=== PATIENT | female | born 1940 | race Caucasian/White ===

== ENCOUNTER → 2017-01-01 | Outpatient (CLI) | payer MEDICARE, OTHER ==
[~2017-01-01] MED LIST: B COMPLEX1 EACH; CELECOXIB200 MG PO; COCONUT OIL1000 MG PO; FERRO-TIME325 MG PO; FISH OIL 1,0001 EACH PO; GINKGO BILOBA500 MG; HCTZ PO; LEVO-T125 MCG; MAGNESIUM; MIRAPEX1 MG; MULTI-VITAMIN1 EAC1 PO; POTASSIUM CHLO10 ME1; PROZAC PO; VITAMIN D250000 UNIT PO; [UNRECOGNIZED DRUG - OTHER]
--- NOTE | ~2017-01-01 | EKG ---
PATIENT: LUZ MARINA PHILLIPS UNIT #: [id number] Ventricular Rate: 64 BPM Atrial Rate: 64 BPM P-R Interval: 156 ms QRS Duration: 90 ms Q-T Interval: 420 ms QTC Calculation(Bezet): 433 ms P [place]: 42 degrees Calculated R [place]: -28 degrees Calculated T [place]: 18 degrees Diagnosis Line: Normal sinus rhythm ST elevation, consider early Diagnosis Line: repolarization, pericarditis, or injury Borderline Diagnosis Line: ECG Diagnosis Line: No previous ECGs available Diagnosis Line: Confirmed by YAZ CAMPBELL MD ([id number]) on 01/02/2017 Diagnosis Line: 5:59:38 PM INTERPRETING MD: ADRIAN LUNDY
--- NOTE | ~2017-01-01 | CR63 ---
[facility] A Service of [facility] RADIOLOGY TEXT RESULTS PATIENT: LUZ MARINA PHILLIPS LOCATION: [facility] : 42 UNIT #: [id number] AGE: [address]: Dao Granados MD SEX: F ORDER DR: [id number] [facility] [address] [place], [place] [address] [id number] MR#: [id number] Acc #: [id number] NAME: LUZ MARINA PHILLIPS : 1940 SEX: F STUDY DATE/TIME: 01/01/2017 UNIT: [facility] ROOM: STUDY DESCRIPTION: CR Chest 2 View Attending Physician: Dao Granados M.D. Referring Physician: Dao Granados M.D. Ordering Physician: Dao Granados M.D. Primary Care Physician: Laurent Hightower M.D. MEDICAL IMAGING REPORT This report is preliminary unless electronic signature is present EXAM Chest 2 views 01/01/2017 1122 hours. HISTORY 76-year-old woman with mild chronic shortness of air with activity, preop for revision of knee replacement. COMPARISON None. FINDINGS Upright PA and lateral views of the chest demonstrate a mildly enlarged cardiac silhouette with a tortuous atherosclerotic aorta. The pulmonary vascularity is normal. Lung volumes are low. There is likely a small hiatal hernia. Lateral view demonstrates blunting of the posterior sulci bilaterally, which could indicate small bilateral pleural effusions versus pleural thickening. IMPRESSION There is mild cardiomegaly with blunting of both posterior sulci suggesting small bilateral pleural effusions or chronic pleural thickening. There is no evidence of pneumonia or edema. A small hiatal hernia may be present. Dictated by... Syl Marr M.D. THIS IS AN ELECTRONICALLY VERIFIED REPORT Syl Marr M.D. at 01/02/2017 9:30 AM SELENE/ioana [facility] A Service of [facility] RADIOLOGY TEXT RESULTS PATIENT: LUZ MARINA PHILLIPS LOCATION: [facility] : 42 UNIT #: [id number] AGE: [address]: Dao Granados MD SEX: F ORDER DR: TD: 01/01/2017 14:57 JOB #: [id number] MEDICAL IMAGING REPORT Page 1 of 1 COPY
[2017-01-01 08:58] LABS: URINE APPEARANCE CLEAR; URINE BILIRUBIN NEG (NEG); URINE BLOOD NEG (NEG); URINE COLOR YELLOW; URINE GLUCOSE NEG (NEG); URINE KETONE NEG (NEG); URINE LEUKOCYTE ESTERASE NEG (NEG); URINE NITRATE NEG (NEG); URINE PROTEIN NEG (NEG); URINE SPECIFIC GRAVITY 1.018 (1.003-1.035); URINE UROBILINOGEN 0.2 MG/DL (NEG)
[2017-01-01 09:02] LABS: HEMATOCRIT 45.6 % (35.0-45.0); HEMOGLOBIN 14.8 gm/dL (12.0-16.0); MEAN CELL VOLUME 86.2 FL (83-96); MEAN CORPUSCULAR HGB CONC 32.5 g/dL (30-36); MEAN PLATELET VOLUME 8.8 FL (6.5-11.5); RED BLOOD COUNT 5.28 X10e (3.90-5.30); RED CELL DISTRIBUTION WIDTH 14.3 % (11.0-15.5); WHITE BLOOD COUNT 8.3 X10e3 (4.0-10.5)
[2017-01-01 09:03] LABS: CULTURE INDICATED? NO; URINE SOURCE CLEAN CATCH
[2017-01-01 09:16] LABS: PROTHROMBIN TIME (PATIENT) 10.5 SECONDS (9.6-11.5)
[2017-01-01 09:20] LABS: BILIRUBIN,TOTAL 0.7 mg/dL (0.2-2.0); CALCIUM SERUM 9.2 mg/dL (8.4-10.2); CREATININE SERUM 0.5 mg/dL (0.6-1.4); GLOM FILT RATE Estimated 95.4 mL/min (>60); POTASSIUM 3.9 mmol/L (3.5-5.1); PROTEIN TOTAL SERUM 6.8 g/dL (6.0-8.3)
[2017-01-01 11:17] LABS: THYROID STIMULATING HORMONE 0.04 uIU/ml (0.34-5.60)
[2017-01-01 11:24] LABS: FREE THYROXIN (T4) 1.29 ng/dL (0.58-1.64)
== END | disposition home or self-care (01) ==
LOC: CAMB 12-30 10:00
PROVIDERS: Orthopaedic Surgery
DX: Z01.818 Encounter for other preprocedural examination (principal); T84.023A Instability of internal left knee prosthesis, initial encounter; E03.9 Hypothyroidism, unspecified; I51.7 Cardiomegaly; Z79.01 Long term (current) use of anticoagulants
CPT/HCPCS: 36415; 71020; 80053; 81003; 84439; 84443; 85027; 85610; 85652; 86140; 86850; 86900; 86901; 87070; 93005

== ENCOUNTER → 2017-02-10 | Day surgery (SDC) | payer MEDICARE, OTHER ==
--- NOTE | ~2017-02-10 | CO ---
Unit #: [id number] #: [id number] Patient: LUZ MARINA PHILLIPS [id number] [address] [place], [place] [address] [id number] MR#: [id number] NAME: LUZ MARINA PHILLIPS ROOM: Age: 76 Sex: F Admission Date: 01/13/2017 : 1940 Attending Physician: Dao Granados M.D. Consultation Date: 01/01/2017 CONSULTATION REPORT REASON FOR CONSULTATION Preoperative medical evaluation prior to revision left total knee arthroplasty secondary to failed components of the left knee and left total knee instability scheduled by Dr. Granados for 01/23/2017. HISTORY OF PRESENT ILLNESS The patient is a 76-year-old female, who presents to preprocedural screening for the reasons indicated above. She reports left knee stiffness and sensation that her left leg is heavy and hard to move especially worsening with weather changes. She denies fever or chills. She denies arm, neck, jaw, back pain or pressure, dyspnea on exertion, shortness of air, orthopnea, or paroxysmal nocturnal dyspnea. She has not undergone a formal sleep apnea testing and states that she is not sure that she actually "snores." She denies lightheadedness, dizziness, syncope, or presyncope. Denies palpitations. She denies a history of myocardial infarction, congestive heart failure, CVA, TIA, diabetes mellitus, and chronic kidney disease. She is stable at the time of this interview. She has been evaluated by Dr. Granados and scheduled for the above-referenced procedure. PAST MEDICAL HISTORY 1. Osteoarthritis. 2. Obesity, BMI of 31. 3. Hypertension. 4. Risk factors for obstructive sleep apnea per Stop-Bang protocol without BIJU testing. 5. Urinary stress incontinence. 6. Depression and anxiety. 7. Hypothyroidism. 8. Remote history of anemia. 9. Restless legs syndrome. 10. Tingling in hands and feet. PAST SURGICAL HISTORY 1. Bilateral total knee arthroplasty. 2. Left total knee revision. 3. Tonsillectomy. 4. Cholecystectomy. 5. Gastric bypass surgery. 6. Bilateral foot surgeries x4 each. 7. Hernia repair x2. 8. Bilateral cataract extraction. 9. Hand and arm fracture repair. Please note, this patient denies a personal and family history of Unit #: [id number] #: [id number] Patient: LUZ MARINA PHILLIPS complications to anesthesia. ALLERGIES No known drug allergies. Denies latex allergy. CURRENT MEDICATIONS Mirapex 1 mg p.o. at bedtime, levothyroxine sodium 250 mcg p.o. daily, vitamin D2 41769 units p.o. on Saturdays, hydrochlorothiazide 50 mg p.o. b.i.d., potassium chloride 30 mEq p.o. b.i.d., Celebrex 200 mg p.o. b.i.d., fluoxetine 20 mg p.o. daily, echinacea 2280 mg daily, B complex 3000 mcg p.o. daily, fish oil 1000 mg softgel one cap p.o. daily, coconut oil 1000 mg p.o. daily, ginkgo biloba 1000 mg p.o. daily, multivitamin one p.o. daily at bedtime, Santo-Time 325 mg tab one p.o. b.i.d. SOCIAL HISTORY Denies tobacco use or illicit drug use. Consumes EtOH occasionally. FAMILY HISTORY Per review of Dr. Granados's office note, father had history of multiple myeloma. No known immediate family history of coronary artery disease, diabetes, CVA, or congestive heart failure. REVIEW OF SYSTEMS The patient reports left knee stiffness, sensation of left lower extremity heavy and hard to move especially with weather changes. She also reports intermittent sensation of cold feet and she wears socks at night. She reports dependent bilateral lower extremity edema, which improves with elevation of both lower extremities. A 10-point review of systems is conducted and otherwise negative except as indicated under history of present illness above. PHYSICAL EXAMINATION GENERAL: A 76-year-old obese female, awake, alert, in no acute distress. VITAL SIGNS: Temperature 97.8, heart rate 64, respiratory rate 16, blood pressure 108/73. HEENT: Atraumatic and normocephalic. Sclerae anicteric. No discharge from eyes, ears, or nares. LYMPH: No preauricular, postauricular, tonsillar, submental, anterior or posterior cervical adenopathy. ENDOCRINE: No thyromegaly, thyroid nodules, or tenderness. RESPIRATORY: Clear to auscultation in all campbell bilaterally without wheezes, rhonchi, or rales. CARDIOVASCULAR: S1, S2. Regular rate and rhythm without murmur or rub. GI: Bowel sounds are positive x4. Soft, nontender, nondistended. EXTREMITIES: 3+ bilateral lower extremity edema. NEUROLOGIC: Alert and oriented x3. Speech clear. Cranial nerves II through XII are grossly intact. Follows commands. DIAGNOSTIC STUDIES LABORATORY RESULTS: WBC 8.3, hemoglobin 14.8, hematocrit 45.6, platelet count 189,000. Sedimentation rate 9. TSH 0.04. Free T4 1.29. Sodium 139, potassium 3.9, chloride 102, CO2 28, glucose 87, BUN 23, creatinine 0.5, calcium 9.2. AST 31, ALT 34, alkaline phosphatase 59, bilirubin total 0.7, total protein 6.8, albumin 4.0. PT 10.5, INR 1.0. Urinalysis, negative with neither microscopic nor culture indicated. MRSA nasal swab report pending at this time. Unit #: [id number] #: [id number] Patient: LUZ MARINA PHILLIPS IMAGING STUDIES: Two-view chest x-ray report pending at this time. CARDIOVASCULAR STUDIES: Cardiology; 12-lead EKG, normal sinus rhythm, possible left atrial enlargement, borderline ECG. Confirmed report pending at this time. IMPRESSION The patient is a 76-year-old obese female, who presents to preprocedural screening for; 1. Preoperative medical evaluation prior to revision left total knee arthroplasty. The patient's Tovar revised cardiac risk index is equal to 0.4%. This represents the patient's perioperative risk of fatal or nonfatal myocardial infarction, cardiopulmonary arrest, arrhythmia, and/or pulmonary edema. This has been discussed in detail with the patient. She wishes to proceed with surgery as scheduled at this time. 2. Hypertension. The patient's blood pressure is controlled today. We will monitor blood pressure perioperatively and adjust home antihypertensive medications if indicated. 3. Risk factors for obstructive sleep apnea per Stop-Bang protocol. The patient states that she does not snore so to speak. Given the patient's risk factors, I have recommended that she will be placed on BIJU protocol postoperatively. 4. Urinary stress incontinence. 5. Depression and anxiety, stable. 6. Hypothyroidism. TSH and free T4 are within normal range today. Continue current dose of home medication. Follow up with primary care physician. 7. Remote history of anemia, status post total joint replacement. The patient's H and H are stable today. 8. Restless legs syndrome, stable. 9. Baseline tingling of bilateral hands and feet. 10. Health maintenance. The patient states that she was treated in 05/2016 for an abscessed tooth and all has resolved and there are no issues at this time. Thank you for allowing us to participate in care of this patient. We will gladly follow her for postop medical management pending order of Dr. Granados. Dictated by... Calli Ling A.P.R.N. for Marium Khan/padmini TD: 01/02/2017 05:17 JOB #: [id number] CONSULTATION REPORT Page 1 of 1 X Calli Ling POULTRY VACCINATOR X CONSULTATION REPORT
[2017-02-10 09:56] LABS: BASOPHIL% 0.5 % (0-2.5); EOSINOPHIL# 0.2 X10e3 (0-0.7); EOSINOPHIL% 2.4 % (0.0-7.0); HEMOGLOBIN 14.4 gm/dL (12.0-16.0); LYMPHOCYTE# 2.4 X10e3 (1.0-3.5); LYMPHOCYTE% 29.3 % (17.0-45.0); MEAN CELL VOLUME 86.5 FL (83-96); MEAN CORPUSCULAR HEMOGLOBIN 27.7 PG (28-34); MEAN PLATELET VOLUME 9.4 FL (6.5-11.5); MONOCYTE# 0.9 X10e3 (0-1.0); MONOCYTE% 10.9 % (3.0-12.0); NEUTROPHIL# 4.7 X10e3 (1.5-7.1); NEUTROPHIL% 56.9 % (40-75); PLATELET COUNT 171 X10e3 (140-420); RED BLOOD COUNT 5.21 X10e (3.90-5.30); RED CELL DISTRIBUTION WIDTH 13.9 % (11.0-15.5); WHITE BLOOD COUNT 8.3 X10e3 (4.0-10.5)
[2017-02-10 10:05] LABS: DIFF IND NO
[2017-02-10 10:08] LABS: PROTHROMBIN TIME (PATIENT) 11.3 SECONDS (10.0-11.7)
[2017-02-10 10:11] LABS: URINE SOURCE CLEAN CATCH
[2017-02-10 10:14] LABS: URINE APPEARANCE CLOUDY; URINE BILIRUBIN NEG (NEG); URINE BLOOD TRACE (NEG); URINE COLOR YELLOW; URINE GLUCOSE NEG (NEG); URINE KETONE NEG (NEG); URINE LEUKOCYTE ESTERASE NEG (NEG); URINE NITRATE NEG (NEG); URINE PROTEIN NEG (NEG); URINE SPECIFIC GRAVITY 1.012 (1.003-1.035); URINE UROBILINOGEN 0.2 MG/DL (NEG)
[2017-02-10 10:17] LABS: CULTURE INDICATED? NO; URBCS1 AUWI 0-2 /[HPF] (0-2); URINE BACTERIA AUWI NEG (NEGATIVE); URINE SQUAMOUS EPITHELIAL CELL NONE SEEN /[HPF]; UWBCS1 AUWI 0-2 (0-5)
[2017-02-10 10:26] LABS: ALBUMIN SERUM 4.2 g/dL (3.5-5.0); BILIRUBIN,TOTAL 1.1 mg/dL (0.2-2.0); BUN/CREATININE RATIO 31.66; CALCIUM SERUM 9.2 mg/dL (8.4-10.2); CREATININE SERUM 0.6 mg/dL (0.6-1.4); GLOM FILT RATE Estimated 89.8 mL/min (>60); POTASSIUM 3.2 mmol/L (3.5-5.1); PROTEIN TOTAL SERUM 7.1 g/dL (6.0-8.3)
== END | disposition home or self-care (01) ==
LOC: CSUR 01-13 10:00 → CPACUOF 09:09 → CSUR 09:09
PROVIDERS: Orthopaedic Surgery
DX: M25.362 Other instability, left knee (principal); M19.90 Unspecified osteoarthritis, unspecified site; I10 Essential (primary) hypertension; E03.9 Hypothyroidism, unspecified; D64.9 Anemia, unspecified; F32.9 Major depressive disorder, single episode, unspecified; F41.9 Anxiety disorder, unspecified; Z86.2 Personal history of diseases of the blood and blood-forming organs and certain disorders involving the immune mechanism; Z90.49 Acquired absence of other specified parts of digestive tract; Z96.653 Presence of artificial knee joint, bilateral; Z98.84 Bariatric surgery status; Z98.41 Cataract extraction status, right eye; Z98.42 Cataract extraction status, left eye; Z79.01 Long term (current) use of anticoagulants; Z98.890 Other specified postprocedural states; Z53.8 Procedure and treatment not carried out for other reasons
CPT/HCPCS: 80053; 81003; 85025; 85610; 86850; 86900; 86901; J0171; J0690; J0735; J1885; J2795

== ENCOUNTER → 2017-02-24 | Outpatient (CLI) | payer MEDICARE, OTHER ==
[2017-02-24 12:22] LABS: URINE APPEARANCE CLEAR; URINE BILIRUBIN NEG (NEG); URINE BLOOD NEG (NEG); URINE COLOR YELLOW; URINE GLUCOSE NEG (NEG); URINE KETONE NEG (NEG); URINE LEUKOCYTE ESTERASE NEG (NEG); URINE NITRATE NEG (NEG); URINE PROTEIN NEG (NEG); URINE SPECIFIC GRAVITY 1.011 (1.003-1.035); URINE UROBILINOGEN 0.2 MG/DL (NEG)
[2017-02-24 12:27] LABS: HEMATOCRIT 42.5 % (35.0-45.0); HEMOGLOBIN 13.7 gm/dL (12.0-16.0); MEAN CELL VOLUME 87.2 FL (83-96); MEAN CORPUSCULAR HEMOGLOBIN 28.1 PG (28-34); MEAN CORPUSCULAR HGB CONC 32.2 g/dL (30-36); MEAN PLATELET VOLUME 9.9 FL (6.5-11.5); RED BLOOD COUNT 4.87 X10e (3.90-5.30); RED CELL DISTRIBUTION WIDTH 13.2 % (11.0-15.5); WHITE BLOOD COUNT 7.9 X10e3 (4.0-10.5)
[2017-02-24 12:29] LABS: CULTURE INDICATED? NO
[2017-02-24 12:33] LABS: PROTHROMBIN TIME (PATIENT) 11.1 SECONDS (10.0-11.7)
[2017-02-24 12:48] LABS: ALBUMIN SERUM 3.6 g/dL (3.5-5.0); BILIRUBIN,TOTAL 0.5 mg/dL (0.2-2.0); BUN/CREATININE RATIO 43.33; CALCIUM SERUM 9.2 mg/dL (8.4-10.2); CREATININE SERUM 0.6 mg/dL (0.6-1.4); GLOM FILT RATE Estimated 89.8 mL/min (>60); POTASSIUM 3.5 mmol/L (3.5-5.1); PROTEIN TOTAL SERUM 6.1 g/dL (6.0-8.3)
== END | disposition home or self-care (01) ==
LOC: CAMB 11:17
PROVIDERS: Orthopaedic Surgery
DX: Z01.812 Encounter for preprocedural laboratory examination (principal); M25.362 Other instability, left knee
CPT/HCPCS: 36415; 80053; 81003; 85027; 85610; 85652; 86140; 86850; 86900; 86901; 87070

== ENCOUNTER 2017-03-03 07:07 | Inpatient (IN) | payer MEDICARE, OTHER ==
[~2017-03-03] VITALS: Ht 162.6 cm; Wt 98.0 kg
--- NOTE | ~2017-03-03 | CR169 ---
[facility] A Service of [facility] RADIOLOGY TEXT RESULTS PATIENT: LUZ MARINA PHILLIPS LOCATION: [facility] 449-01 : 42 UNIT #: [id number] AGE: [address]: Dao Granados MD SEX: F ORDER DR: [id number] [facility] [address] [facility] [address] [facility] [place], [place] [address] [id number] I MR#: [id number] Acc #: [id number] NAME: LUZ MARINA PHILLIPS. : 1940 SEX: F STUDY DATE/TIME: 03/03/2017 14:01 UNIT: [facility] ROOM: [facility] STUDY DESCRIPTION: CR Knee 2 Views Lt Attending Physician: Dao Granados M.D. Ordering Physician: Dao Granados M.D. Primary Care Physician: Laurent Hightower M.D. MEDICAL IMAGING REPORT This report is preliminary unless electronic signature is present EXAM Left knee series 03/03/2017 HISTORY Status post total knee. Pain left today. TECHNIQUE AP and lateral views of the left knee are presented. COMPARISON STUDIES There are no prior studies available for comparison. Comparison with prior study strongly recommended. FINDINGS Patient is status post revision of left total knee replacement. The orthopedic hardware is normally located and aligned. On the lateral view, there is a screw-like metallic density measuring up to 1.9 cm in length, pointed posteriorly. It is not seen on the frontal views. Its precise location is unclear. It could be within the joint capsule. Alternatively, it could be within the extra-capsular soft tissues. Its relationship to popliteal fossa vascular structures is unclear on basis of this examination. Correlate clinically with any prior imaging. Efforts are underway contact Dr. Granados for discussion of this finding. Surgical drain in the operative bed. Small amount of air and fluid in the operative bed. Surgical skin andrew anteriorly. Dictated by... Kristopher Ellison M.D. THIS IS AN ELECTRONICALLY VERIFIED REPORT Kristopher Ellison M.D. at 03/04/2017 6:52 PM [facility] A Service of [facility] RADIOLOGY TEXT RESULTS PATIENT: LUZ MARINA PHILLIPS LOCATION: [facility] 449-01 : 42 UNIT #: [id number] AGE: [address]: Dao Granados MD SEX: F ORDER DR: Yessica TD: 03/04/2017 02:14 JOB #: [id number] MEDICAL IMAGING REPORT Page 1 of 1 COPY
--- NOTE | ~2017-03-03 | OR ---
Unit #: [id number] #: [id number] Patient: LUZ MARINA PHILLIPS [id number] [address] [place], [place] [address] [id number] I MR#: [id number] NAME: LUZ MARINA PHILLIPS ROOM: [facility] Date of Procedure: 03/03/2017 Admission Date: 03/03/2017 Surgeon: Dao Granados M.D. : 1940 Attending Physician: Dao Granados M.D. Primary Care Physician: Laurent Hightower M.D. OPERATIVE REPORT PREOPERATIVE DIAGNOSIS Global instability, left total knee. POSTOPERATIVE DIAGNOSIS Global instability, left total knee. PROCEDURE PERFORMED Revision of left total knee to a hinged prosthesis. ASSISTANTS Arvin and Ruslan. ANESTHESIA Adductor canal block plus general. ESTIMATED BLOOD LOSS 200 mL. Lateral release was performed. DESCRIPTION OF PROCEDURE The patient was brought to the holding room, given 2 g of Kefzol. This will be continued postop, but discontinued within 23 hours from the start time of surgery. She was then given an adductor canal block, brought back to the operating room, given a general anesthetic. Tourniquet placed around the left thigh. Left leg was prepped and draped in a sterile fashion. Tourniquet was inflated to 300. The previous skin incision was used. Subcutaneous dissected away and a medial arthrotomy performed. Clear fluid was encountered. This was cultured. We then flexed the knee. The patella was subluxed laterally, removed the polyethylene from the previous tray was a 22 mm thick poly. After this was done, the patient had a cemented long stem femoral component. We loosened the femur using a 1/2-inch osteotome, tried to disimpact it, but it was still well fixed proximally, so we split the femur longitudinally through the anterior cortex and then eventually were able to get it to be disimpacted and then removed the rest of the cement from the canal. The tibia was then removed and the cement removed from the tibia. The tibia was then reamed up to a 14, reamed for the conical reamer and then broached up to a size 53 for the MBT sleeve. The tibia was sized at a 2. We then reamed the femur up to a 15 and used the broaches up to the largest one for the [place] femoral sleeve, which was a size 46. We had put cerclage wires around the distal femur, where the osteotomy had been performed. We reduced the knee Unit #: [id number] #: [id number] Patient: LUZ MARINA PHILLIPS found that we needed a 21 mm insert for the hinge and this seemed to give appropriate tension in extension. We then removed all the trials, inspected the patella. It was not loose. We opened the real components, then brushed, plugged, irrigated, and dried the canal for cemented stem. On the femur, we used 90 mm stem, on the tibia 60. These were both 13 mm in diameter. Once the components were assembled, we then mixed the cement for the tibia and the tibial component was positioned cementing under the tray and the stem only, but not the sleeve. After this was done, we then mixed 2 more packages of cement and cemented the femoral component into position with appropriate external rotation, cementing the stem only and under the femoral hinge. After this was done, the components were held in place until the cement hardened. After the cement was hardened, we did a trial reduction once again and it was still a 21 mm insert, so the 21 mm insert for the extra small hinge was opened and applied to the tray. The locking pin was positioned. The tourniquet had been released earlier as her tourniquet time had run over an hour. Hemostasis was obtained and then the drain was positioned. The knee was irrigated with Betadine and then closed using 0 Ethibond in the arthrotomy, 0 and 2-0 Vicryl in the subcutaneous, and andrew in the skin. We did do a lateral release prior to closure for patellar tracking. Dictated by... Marium Foote/padmini TD: 03/03/2017 15:43 JOB #: [id number] OPERATIVE REPORT Page 1 of 1 X Dao Granados MD PROCEDURE OPERATIVE NOTE
--- NOTE | ~2017-03-03 | DS ---
Unit #: [id number] #: [id number] Patient: LUZ MARINA PHILLIPS [id number] [address] [place], [place] [address] [id number] MR#: [id number] NAME: LUZ MARINA PHILLIPS ROOM: [facility] Age: Sex: F Admission Date: 03/03/2017 : 1940 Discharge Date: Attending Physician: Dao Granados M.D. Primary Care Physician: Laurent Hightower M.D. DISCHARGE SUMMARY ADMITTING DIAGNOSIS Left total knee flexion instability. DISCHARGE DIAGNOSIS Left total knee flexion instability. HOSPITAL COURSE On 03/03/2017, Ms. Phillips underwent a left total knee revision. She tolerated that procedure well. She was transported to the fourth floor where she underwent physical therapy, medical management, and anticoagulation therapy. She is doing well and is ready to be discharged. DISPOSITION Stable discharge. Discharged to [facility] in [facility]. MEDICATIONS ON DISCHARGE Include her routine home meds in addition to: 1. Coumadin 10 mg p.o. daily. 2. [place] 10/325 p.o. q.4 hours p.r.n. for pain. FOLLOWUP AND INSTRUCTIONS 1. Ms. Phillips is going to be discharged to rehab. 2. Patient is on Coumadin for DVT prophylaxis so PT/INR is to be drawn every Friday and in addition to tomorrow, 03/07/2017. 3. Skin andrew are to be discontinued two weeks postop. Steri-Strips are to be applied 1/4 inch apart. 4. White MINNIE hose are to be worn during the day and can be removed in the evening. 5. Patient can shower in one week and can drive after seen by Dr. Granados at her six-week postop appointment. 6. Physical therapy is to be done for active range of motion, strengthening, and progressive ambulation. Patient is toe-touch weightbearing at the left lower extremity. 7. Followup appointment with Dr. Granados is in six weeks. Please call our office for appointment date and time. Dictated by... Diane Sheridan P.A.C. for Dao Granados M.D. KALEN/brooke TD: 03/06/2017 11:23 Unit #: [id number] #: [id number] Patient: LUZ MARINA PHILLIPS JOB #: [id number] DISCHARGE SUMMARY Page 1 of 1 X Diane Sheridan DISCHARGE SUMMARY
[2017-03-03 07:59] LABS: INR 1.1; PROTHROMBIN TIME (PATIENT) 11.6 SECONDS (10.0-11.7)
[2017-03-04 03:33] LABS: HEMATOCRIT 33.9 % (35.0-45.0); HEMOGLOBIN 11.2 gm/dL (12.0-16.0)
[2017-03-04 03:57] LABS: INR 1.2; PROTHROMBIN TIME (PATIENT) 12.7 SECONDS (10.0-11.7)
[2017-03-04 04:04] LABS: BUN/CREATININE RATIO 31.42; CALCIUM SERUM 8.3 mg/dL (8.4-10.2); CREATININE SERUM 0.7 mg/dL (0.6-1.4); GLOM FILT RATE Estimated 85.4 mL/min (>60); MAGNESIUM 1.3 mg/dL (1.6-3.0); POTASSIUM 4.8 mmol/L (3.5-5.1)
[2017-03-05 04:07] LABS: HEMATOCRIT 32.3 % (35.0-45.0); HEMOGLOBIN 10.5 gm/dL (12.0-16.0)
[2017-03-05 04:19] LABS: INR 1.5; PROTHROMBIN TIME (PATIENT) 16.1 SECONDS (10.0-11.7)
[2017-03-05 04:39] LABS: BUN/CREATININE RATIO 23.75; CALCIUM SERUM 8.5 mg/dL (8.4-10.2); CREATININE SERUM 0.8 mg/dL (0.6-1.4); GLOM FILT RATE Estimated 72.7 mL/min (>60); MAGNESIUM 1.5 mg/dL (1.6-3.0); POTASSIUM 3.2 mmol/L (3.5-5.1)
[2017-03-06 02:52] LABS: HEMATOCRIT 29.4 % (35.0-45.0); HEMOGLOBIN 9.6 gm/dL (12.0-16.0); MEAN CELL VOLUME 86.1 FL (83-96); MEAN CORPUSCULAR HEMOGLOBIN 28.1 PG (28-34); MEAN CORPUSCULAR HGB CONC 32.6 g/dL (30-36); MEAN PLATELET VOLUME 9.6 FL (6.5-11.5); RED BLOOD COUNT 3.42 X10e (3.90-5.30); WHITE BLOOD COUNT 7.2 X10e3 (4.0-10.5)
[2017-03-06 03:06] LABS: INR 1.4; PROTHROMBIN TIME (PATIENT) 15.5 SECONDS (10.0-11.7)
[2017-03-06 03:19] LABS: CALCIUM SERUM 8.2 mg/dL (8.4-10.2); CREATININE SERUM 0.5 mg/dL (0.6-1.4); GLOM FILT RATE Estimated 95.4 mL/min (>60); MAGNESIUM 1.4 mg/dL (1.6-3.0); POTASSIUM 3.7 mmol/L (3.5-5.1)
== END 2017-03-06 15:15 | DRG 467 ==
LOC: CSUR 07:07 → CPACUOF 08:00 → C4B 08:00 → CSUR 09:00 → CPACUOF 12:34 → CSUR 12:34 → C4B 14:11 → CPACUOF 14:11 → C4B 14:11
PROVIDERS: Nurse Practitioner; Orthopaedic Surgery
PROC: 0SRC0J9 Replacement of Right Knee Joint with Synthetic Substitute, Cemented, Open Approach (ICD-10-PCS; 2017-03-03)
PROC: 0SPC0JZ Removal of Synthetic Substitute from Right Knee Joint, Open Approach (ICD-10-PCS; principal; 2017-03-03 09:00)
DX: T84.022A Instability of internal right knee prosthesis, initial encounter (principal); D62 Acute posthemorrhagic anemia; F32.9 Major depressive disorder, single episode, unspecified; F41.9 Anxiety disorder, unspecified; E66.9 Obesity, unspecified; Z68.31 Body mass index [BMI] 31.0-31.9, adult; Z96.651 Presence of right artificial knee joint; Z90.49 Acquired absence of other specified parts of digestive tract; E03.9 Hypothyroidism, unspecified; R32 Unspecified urinary incontinence; E87.6 Hypokalemia; E83.42 Hypomagnesemia
CPT/HCPCS: 73560; 80048; 83735; 85014; 85018; 85027; 85610; 87070; 87075; 87205; 94010; 94640; 94760; 94762; 97110; 97116; 97162; 97166; 97530; 97535; C1713; C1776; G8978-GP; G8979-GP; G8987-GO; G8988-GO; J0131; J0171; J0690; J0735; J1100; J1170; J1650; J1885; J2250; J2405; J2795; J3010; J3475